=== PATIENT | female | born 2000 | race Caucasian/White ===

== ENCOUNTER 2023-03-20 12:37 | Outpatient (CLI) | payer OTHER, SELFPAY ==
[2023-03-20 19:39] LABS: Chlamydia DNA Amplified* NOT DETECTED (No Detected); GC DNA Amplified* NOT DETECTED (No Detected)
== END 2023-03-20 12:38 | disposition home or self-care (01) ==
PROVIDERS: PCP Physician Assistant Medical; Visit Provider Registered Nurse
DX: Z01.419 Encounter for gynecological examination (general) (routine) without abnormal findings (principal); R00.0 Tachycardia, unspecified; Z11.3 Encounter for screening for infections with a predominantly sexual mode of transmission; Z13.6 Encounter for screening for cardiovascular disorders; Z13.1 Encounter for screening for diabetes mellitus
CPT/HCPCS: 80061; 82947; 84443; 87491; 87591